=== PATIENT | female | born 1985 | race Caucasian/White ===

== ENCOUNTER 2016-06-06 04:02 | Day surgery (SDC) | payer BC ==
[~2016-06-06 04:02] MED LIST: FLEXERIL10 MG PO; K-DUR20 ME1 PO; NO HOME MEDS; NORCO 5/325 TAB1 TAB PO; RECLIPSEN1 TAB PO; ZOFRAN ODT4 MG/UDTAB PO
[2016-06-06] MEDS ORDERED: NO HOME MEDICATION XX (04:14)
[2016-06-06 04:38] LABS: BASO % 0.2 % (0-2); EOS % 1.6 % (0-7); EOSINOPHIL ABSOLUTE COUNT 0.1 tho/cmm (0.0-0.7); HCT-HEMATOCRIT 40.9 % (34.0-49.0); HGB-HEMOGLOBIN 13.8 gm/dl (12.0-15.5); IMMATURE GRANULOCYTES ABSOLUTE 0.03 tho/cmm (0-0.03); IMMATURE GRANULOCYTES PERCENT 0.4 % (0-0.3); LYMPH % 37.6 % (20-45); LYMPH ABSOLUTE COUNT 3.1 tho/cmm (0.8-4.5); MCH (MEAN CORPUSCULAR HGB) 30.4 pg (28.0-32.0); MCHC MEAN CORPUSCULAR HGB CONC 33.7 % (32.0-36.0); MCV (MEAN CELL VOLUME) 90.1 fl (82.0-96.0); MEAN PLATELET VOLUME 9.7 cmc (9.4-12.4); MONO % 6.5 % (0-12); MONOCYTE ABSOLUTE COUNT 0.5 tho/cmm (0.0-1.2); NEUTROPHIL ABSOLUTE COUNT 4.5 tho/cmm (1.6-8.0); NEUTROPHIL-AUTOMATED 4.5 tho/cmm (1.6-8.0); NEUTROPHILS % 53.7 % (40-80); PLATELET COUNT 265 tho/cmm (150-450); RED BLOOD COUNT 4.54 mil/cmm (4.00-5.20); RED CELL DISTRIBUTION WIDTH 12.3 % (12.4-16.4); WHITE BLOOD COUNT 8.3 tho/cmm (4.0-10.0)
[2016-06-06 04:52] LABS: PREGNANCY-SERUM NEGATIVE (NEGATIVE)
[2016-06-06 05:12] LABS: ALB/GLOB RATIO 0.8 (0.8-2.0); ALBUMIN 3.2 g/dl (3.5-5.0); ALKALINE PHOSPHATASE 90 U/L (33-138); ALT/SGPT 18 U/L (12-78); BILIRUBIN,TOTAL 0.3 mg/dl (0-1.5); BLOOD UREA NITROGEN 10 mg/dl (6-24); CALCIUM 8.4 mg/dl (8.5-10.5); CARBON DIOXIDE-VENOUS 27 mmol/L (22-32); CHLORIDE 105 mmol/l (96-110); CREATININE 0.75 mg/dl (0.50-1.10); GLUCOSE 107 mg/dL (70-110); LIPASE 159 U/L (73-393); SODIUM 140 mmol/L (135-145); eGFR VALUE FOR BLACK >90 mL/Min
[2016-06-06 05:13] LABS: ANION GAP 12 mmol/L (0-20); AST/SGOT 18 U/L (10-40); POTASSIUM 3.5 mmol/L (3.7-5.1)
[2016-06-06 05:59] LABS: URINE BILIRUBIN NEGATIVE (NEG); URINE BLOOD NEGATIVE (NEG); URINE GLUCOSE (UA) NEGATIVE (NEG); URINE KETONE NEGATIVE (NEG); URINE LEUKOCYTE ESTERASE POSITIVE (NEG); URINE NITRITE NEGATIVE (NEG); URINE PROTEIN NEGATIVE (NEG)
[2016-06-06 06:00] LABS: URINE APPEARANCE CLEAR; URINE COLOR YELLOW
[2016-06-06 06:15] LABS: URINE AMORPHOUS 1+; URINE RBC 0 /[HPF] (0-5)
[2016-06-07] MEDS ORDERED: COLACE100 M1 PO (10:26)
[2016-06-07] MEDS ORDERED: NORCO 5-325 TA1 EACH PO (10:27)
== END 2016-06-07 12:09 ==
LOC: EDMED 04:02 → EMR2 07:04 → CAR1 08:50 → ORW 15:11 → PACU 16:03 → CAR1 16:45
PROVIDERS: Emergency Medicine
PROC: 0DTJ4ZZ Resection of Appendix, Percutaneous Endoscopic Approach (ICD-10-PCS; principal; 2016-06-06)
DX: K35.80 Unspecified acute appendicitis (principal); Z98.890 Other specified postprocedural states
CPT/HCPCS: G0378; J1335; J1885; J2270; J2405; J7030